=== PATIENT | male | born 1950 | race Caucasian/White ===

== ENCOUNTER 2024-05-22 06:28 | Inpatient (IN) | payer MEDICARE, OTHER, SELFPAY ==
[2024-05-22] VITALS (19 sets, daily range): BP systolic 98–155; BP diastolic 45–114; BMI 22.0; BMI 21.4
[2024-05-22 04:21] LABS: % Basophils 0.6 % (0-2); % Eosinophils 3.8 % (0-6); % Immature Granulocytes 0.4 % (0-0.5); % Lymphocytes 37.9 % (20.5-51.1); % Monocytes 10.1 % (1.7-9.3); % Neutrophils 47.2 % (42.2-75.2); Absolute Basophils 0.1 10^3/uL (0-0.2); Absolute Eosinophils 0.4 10^3/uL (0-0.7); Absolute Lymphocytes 3.9 10^3/uL (1.2-3.4); Absolute Neutrophils 4.9 10^3/uL (1.4-6.5); Hematocrit 40.8 % (39.0-52.0); Hemoglobin 13.8 g/dL (13.0-18.0); Mean Corp Hgb Conc. 33.8 g/dL (33.0-37.0); Mean Corpuscular Hgb 27.3 pg (27.0-31.0); Mean Corpuscular Volume 80.6 fL (80.0-94.0); Mean Platelet Volume 9.3 fL (7.4-10.4); Nucleated Red Blood Cells % 0 % (-); Platelet Count 317 10^3/uL (130-400); Red Blood Cell Count 5.06 10^6/uL (4.70-6.10); Red Cell Dist. Width 13.9 % (11.5-14.5); White Blood Cell Count 10.3 10^3/uL (4.8-10.8)
[2024-05-22 04:34] LABS: ALT (SGPT) 21 U/L (0-50); AST (SGOT) 34 U/L (17-59); Albumin 4.8 g/dl (3.5-5.0); Alkaline Phosphatase 97 U/L (38-126); Blood Urea Nitrogen 30 mg/dl (9-20); Carbon Dioxide 31 mmol/L (22-30); Chloride 99 mmol/L (98-107); Estimated Creatinine Clearance 63 ml/min; Glucose 292 mg/dl (70-99); Potassium 4.2 mmol/L (3.5-5.1); Sodium 142 mmol/L (135-145); Total Bilirubin 0.8 mg/dl (0.2-1.3); Total Protein 7.4 g/dl (6.3-8.2); eGFR > 60.00
--- NOTE | 2024-05-22 04:40 | ED.GENMED ---
History of Present Illness
<Natalie (Tunde JOCELIN Arellano - Last Filed: 05/22/24 05:06>
General
Chief Complaint: Chest Pain
Source: patient
Exam Limitations: none
Time Seen by Provider: 05/22/24 04:20
Nursing documentation reviewed up to this point in time: agreed with
History of Present Illness
History of Present Illness:
Pt is a 74yo male with PMHx of HTN/HLD and 'elevated sugar' (pt denies dx of diabetes) who presents to the ED with chest pain since 1999. 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
radiated across the entire chest, to the L arm, where it became dull at his elbow. The pain has been constant since, but ebbs and flows in severity. It is worse when laying supine, better with standing. He came home from work, ate his first meal of
the day, and took his blood pressure (180s/100s). He took a losartan (unsure mg) which lowered his BP to 160s systolic, and hydrocodone for the pain. Endorses diaphoresis at pain onset and lasting nausea, no vomiting. He denies numbness or tingling
in his digits, no pain with breathing, no dyspnea or orthopnea, no abdominal pain, no swelling. Denies DIAZ, fevers, chills.
Yesterday morning he worked out his arms, but does not recall pulling a muscle or having injury.
Yesterday (05/21) he states he only had one glass of water in the morning, then he worked all day in his shop which is set to 80 degrees, and then ate his first meal at night, after the onset of the pain. He normally only eats 1 meal a day.
He states that his primary once gave him a 6 month dose of losartan for HTN, but he self-elected to stop taking it 3-4 months ago.
Additionally he states he took Jardiance for 'high sugars' but hasn't taken that in months.
He has never seen a dethistler operator.
Past History
<JOCELIN Patel (Lenka) - Last Filed: 05/22/24 05:06>
Past History
ED Past Medical History: HTN, Hypercholesterolemia and Other ('high sugar, not diabetes')
ED Past Surgical History: None
Social History
Tobacco: Non-smoker
Alcohol: None
Drug: None
Personal:
Living: with family
Employment: Employed (Self-employed body artist)
Family History
Family History: Other (denies FHx of cardiac conditions)
Phy Exam
<JOCELIN Patel (Lenka) - Last Filed: 05/22/24 05:06>
General Physical Exam
General Presentation: mild distress (pt pacing around room)
General age: appears younger than age
General Skin: warm and dry
General Habitus: normal
General Mental: alert
General Hydration: appears well hydrated
Eye Exam
Eye Exam: PERRL and conjunctiva normal
Cardiovascular Exam
Cardiovascular Exam: regular rate/rhythm, no edema, no gallop, no murmur and normal peripheral pulses
Heart Sounds: normal
Pulmonary Exam
Pulmonary Exam: lungs clear, no respiratory distress, no rales, chest non tender (chest without increased tenderness when palpating ), no rhonchi, no wheezing and no cough
Gastrointestinal Exam
Gastrointestinal Exam: normal bowel sounds, non tender, soft and non distended
Neurological Exam
Neurological Exam: alert, oriented x3, speech normal and normal gait
Musculoskeletal Exam
Musculoskeletal Exam: full ROM
Skin Exam
Skin Exam: normal color and warm/dry
Scores
<Abhilash Jolly DO - Last Filed: 05/24/24 19:00>
Heart Score for Chest Pain Patients
STEMI patient?: Not applicable
Course
<Natalie Arellano (Lenka), JOCELIN - Last Filed: 05/22/24 05:06>
Orders/Labs/Results
Orders:
Orders
05/22/24 03:29
Electrocardiogram (*1) Urgent
Reason for Study: Other
Other Reason for Exam: Respiratory Distress
EKG- Treatment ONCE
CR Chest - 2 Views Urgent
Comment:
Reason For Exam: respiratory distress
05/22/24 03:44
CR Shoulder - Left Min 2 View* Urgent
Comment:
Reason For Exam: shoulder pain
05/22/24 04:07
Complete Blood Count/With Diff Urgent
Comprehensive Metabolic Panel Urgent
Troponin I Urgent
05/22/24 05:11
Aspirin 325 mg PO NOW STA
Nitroglycerin Sublingual [Nitrostat (Sublingual)] 0.4 mg SL [id number] PRN
05/22/24 05:20
Heparin 4,000 units IV NOW STA
05/22/24 05:[address] Non Medication Order As Directed
Physician Order: PTT 6 hours after initial start of Heparin infusion
Above order entered?: Yes
05/22/24 05:30
PTT Urgent
Comment: Obtain baseline before beginning heparin infusion if not already collected
05/22/24 05:32
Heparin 09654 Units/250 ml 25,000 units in 250 ml .ROUTE .STK-MED
05/22/24 Breakfast
NPO
Allow oral meds: Yes
Allow clear liquids: Sips of Clears
05/22/24 06:15
Heparin 47232 Units/250 ml 25,000 units in 250 ml IV PER PROTOCOL
Weight to be used for heparin protocol in kilograms (kg):: 75.6
Protocol:: Cardiac Tx/Acute Coronary
PTT Goal Range to be used:: PTT 73 to 111 seconds
Order type:: Initial
INITIAL Infusion Dose (UNITS/KG/hr) & then follow protocol:: 12 units/kg/hr
Infusion Dose in UNITS/hr & then follow protocol (UNITS/hr):: 900
INFUSION RATE in mL/hr & then follow protocol (mL/hr):: 9
PTT less than or equal to 64 seconds:: Increase rate by 200 units/hr (+ 2 mL/hr)
PTT 64.1 to 72.9 seconds:: Increase rate by 100 units/hr (+ 1 mL/hr)
PTT 73 to 111 seconds:: Target Range. No change in rate.
PTT 111.1 to 130.9 seconds:: Decrease rate by 100 units/hr (- 1 mL/hr)
PTT 131 to 199.9 seconds:: HOLD for 1 hr. Then decrease rate by 200 units/hr (- 2 mL/hr)
PTT greater than or equal to 200 seconds:: HOLD for 2 hrs & Notify Provider. Then decrease by 200 units/hr (-
2 mL/hr)
Lab follow-up:: Each change, PTT q6h until 2 consecutive are therapeutic. Then PTT
daily.
05/22/24 06:17
Admit/Transfer Patient As Directed
Co-Sign Provider:
Level of Care: Inpatient admission
Assign to:: IVU
Physician / Group: Manolo
Diagnosis: ACS
Reason for Hospitalization: ACS
Expected length of stay greater than two midnights?: Yes
ELOS- Estimated Length of Stay in days: 2
I certify the patient meets the requirements for IP care: Yes
PRN Pain Medication Management As Directed
May give lesser potent ordered pain med per pt: Yes
preference::
Protocol:: Medication orders for pain may be administered in a
manner that supports deferring to patient preference
when the pt is:
- Requesting an ordered lesser potent pain medication.
Least to most potent pain medications are defined
as: acetaminophen < NSAID < tramadol < opioids
(morphine, oxycodone, hydromorphone).
- Requesting a lesser dose of the same medication IF
ORDERED.
- Requesting a less intrusive route of administration
if both routes are prescribed by the provider (PO <
IV).
05/22/24 06:18
Code Status As Directed
Resuscitation Status: Full Code
05/22/24 07:53
0.9% Sodium Chloride 1000 ml [Nss] 1,000 ml IV 100 mls/hr
Acetaminophen [Tylenol] 650 mg PO Q4HPRN PRN
Dextrose 50%-Water [Dextrose 50% Syringe] 12.5 grams IV [id number] PRN
Glucagon [GlucaGen] 1 mg IM PRN PRN
Morphine Sulfate 2 mg IV Q4HPRN PRN
Nitroglycerin Sublingual [Nitrostat (Sublingual)] 0.4 mg SL [id number] PRN
Ondansetron Injectable [Zofran] 4 mg IV Q6HPRN PRN
05/22/24 07:53
CARDIOLOGY CONSULT Routine
Consulting Provider: Pramod Amos
Was physician already notified: Yes
Reason for consult: ACS
Heparin Protocol- PTT Orders As Directed
PTT per Heparin protocol: -Obtain CBC and baseline PTT - if not already collected.
-Obtain PTT 6 hours from start of infusion. Then, every 6 hours until 2 consecutive
PTT's are therapeutic. Then, PTT Daily.
-With each rate change, obtain PTT every 6 hours until 2 consecutive PTT's are
therapeutic. Then, PTT Daily.
Activity As Directed
Activity Level: Bedrest
Bedside Glucose Monitoring As Directed
Frequency: AC&HS
Additional Instructions:: Change to q6h if pt on TPN, tube feeding or not eating
Bladder Scan As Directed
Follow Bladder Retention/Intermittent Cath Algorithm?: Yes
PRN if no void in __ hours: 6
Frequency: Per Retention Algorithm
If Bladder Scan Result >: 400
then:: Straight cath
EKG with chest pain [ECG as needed] As Directed
ECG as needed for:: Chest Pain
I/O [Intake/ Output] As Directed
Frequency: Per unit guidelines
Notify MD As Directed
Notify physician if: PTT is greater than or equal to 200.
Straight Cath As Directed
Frequency: Per Retention Algorithm
Additional Instructions: straight cath as needed per acute urinary retention algorithm for 24 hrs
Additional Instructions: for bladder scan greater than 400 mL
Vital Signs As Directed
Frequency: Per unit guidelines
Oxygen Therapy [O2 Therapy] [RESP] Routine
Titrate/Wean O2 to maintain O2 sat greater than (%): 94
05/22/24 08:00
Pantoprazole [Protonix IV] 40 mg IV DAILY
05/22/24 08:10
Insulin Aspart Corrective Low [Novolog Flexpen-Low Resistance] See Protocol SC AC
05/22/24 09:13
Troponin I Q6H
05/22/24 12:27
PTT Q6
05/22/24 16:39
Troponin I Q6H
05/23/24 05:11
Basic Metabolic Panel IN AM
05/23/24 06:00
EKG [Electrocardiogram (*1)] IN AM
Reason for Study: Chest Pain
05/23/24 08:00
Aspirin Chewable [Low Strength Aspirin] 81 mg PO DAILY
Abnormal Lab Results
05/22/24
04:07
Absolute Lymphs (auto) 3.9 H 10^3/uL
(1.2-3.4)
Absolute Monos (auto) 1.0 H 10^3/uL
(0.1-0.6)
Monocytes % 10.1 H %
(1.7-9.3)
Carbon Dioxide 31 H mmol/L
(22-30)
BUN 30 H mg/dl
(9-20)
Glucose 292 H mg/dl
(70-99)
Troponin I 0.105 H* ng/ml
05/22/24 04:07
05/22/24 04:07
Vital Signs
Initial and Last Documented VS:
Initial Vital Signs
Temp Pulse Resp BP Pulse Ox
97.5 F 68 18 155/86 98
05/22/24 03:38 05/22/24 03:38 05/22/24 03:38 05/22/24 03:38 05/22/24 03:38
Last Documented Vital Signs
Temp Pulse Resp BP Pulse Ox
97.2 F 68 18 120/78 98
05/23/24 11:56 05/23/24 11:56 05/23/24 11:56 05/23/24 11:56 05/23/24 07:47
<Abhilash Jolly, - Last Filed: 05/24/24 19:00>
Orders/Labs/Results
Orders:
Orders
05/22/24 03:29
Electrocardiogram (*1) Urgent
Reason for Study: Other
Other Reason for Exam: Respiratory Distress
EKG- Treatment ONCE
CR Chest - 2 Views Urgent
Comment:
Reason For Exam: respiratory distress
05/22/24 03:44
CR Shoulder - Left Min 2 View* Urgent
Comment:
Reason For Exam: shoulder pain
05/22/24 04:07
Complete Blood Count/With Diff Urgent
Comprehensive Metabolic Panel Urgent
Troponin I Urgent
05/22/24 05:11
Aspirin 325 mg PO NOW STA
Nitroglycerin Sublingual [Nitrostat (Sublingual)] 0.4 mg SL [id number] PRN
05/22/24 05:20
Heparin 4,000 units IV NOW STA
05/22/24 05:[address] Non Medication Order As Directed
Physician Order: PTT 6 hours after initial start of Heparin infusion
Above order entered?: Yes
05/22/24 05:30
PTT Urgent
Comment: Obtain baseline before beginning heparin infusion if not already collected
05/22/24 05:32
Heparin 52477 Units/250 ml 25,000 units in 250 ml .ROUTE .STK-MED
05/22/24 Breakfast
NPO
Allow oral meds: Yes
Allow clear liquids: Sips of Clears
05/22/24 06:15
Heparin [id number] Units/250 ml 25,000 units in 250 ml IV PER PROTOCOL
Weight to be used for heparin protocol in kilograms (kg):: 75.6
Protocol:: Cardiac Tx/Acute Coronary
PTT Goal Range to be used:: PTT 73 to 111 seconds
Order type:: Initial
INITIAL Infusion Dose (UNITS/KG/hr) & then follow protocol:: 12 units/kg/hr
Infusion Dose in UNITS/hr & then follow protocol (UNITS/hr):: 900
INFUSION RATE in mL/hr & then follow protocol (mL/hr):: 9
PTT less than or equal to 64 seconds:: Increase rate by 200 units/hr (+ 2 mL/hr)
PTT 64.1 to 72.9 seconds:: Increase rate by 100 units/hr (+ 1 mL/hr)
PTT 73 to 111 seconds:: Target Range. No change in rate.
PTT 111.1 to 130.9 seconds:: Decrease rate by 100 units/hr (- 1 mL/hr)
PTT 131 to 199.9 seconds:: HOLD for 1 hr. Then decrease rate by 200 units/hr (- 2 mL/hr)
PTT greater than or equal to 200 seconds:: HOLD for 2 hrs & Notify Provider. Then decrease by 200 units/hr (-
2 mL/hr)
Lab follow-up:: Each change, PTT q6h until 2 consecutive are therapeutic. Then PTT
daily.
05/22/24 06:17
Admit/Transfer Patient As Directed
Co-Sign Provider:
Level of Care: Inpatient admission
Assign to:: IVU
Physician / Group: Manolo
Diagnosis: ACS
Reason for Hospitalization: ACS
Expected length of stay greater than two midnights?: Yes
ELOS- Estimated Length of Stay in days: 2
I certify the patient meets the requirements for IP care: Yes
PRN Pain Medication Management As Directed
May give lesser potent ordered pain med per pt: Yes
preference::
Protocol:: Medication orders for pain may be administered in a
manner that supports deferring to patient preference
when the pt is:
- Requesting an ordered lesser potent pain medication.
Least to most potent pain medications are defined
as: acetaminophen < NSAID < tramadol < opioids
(morphine, oxycodone, hydromorphone).
- Requesting a lesser dose of the same medication IF
ORDERED.
- Requesting a less intrusive route of administration
if both routes are prescribed by the provider (PO <
IV).
05/22/24 06:18
Code Status As Directed
Resuscitation Status: Full Code
05/22/24 07:53
0.9% Sodium Chloride 1000 ml [Nss] 1,000 ml IV 100 mls/hr
Acetaminophen [Tylenol] 650 mg PO Q4HPRN PRN
Dextrose 50%-Water [Dextrose 50% Syringe] 12.5 grams IV [id number] PRN
Glucagon [GlucaGen] 1 mg IM PRN PRN
Morphine Sulfate 2 mg IV Q4HPRN PRN
Nitroglycerin Sublingual [Nitrostat (Sublingual)] 0.4 mg SL [id number] PRN
Ondansetron Injectable [Zofran] 4 mg IV Q6HPRN PRN
05/22/24 07:53
CARDIOLOGY CONSULT Routine
Consulting Provider: Pramod Amos
Was physician already notified: Yes
Reason for consult: ACS
Heparin Protocol- PTT Orders As Directed
PTT per Heparin protocol: -Obtain CBC and baseline PTT - if not already collected.
-Obtain PTT 6 hours from start of infusion. Then, every 6 hours until 2 consecutive
PTT's are therapeutic. Then, PTT Daily.
-With each rate change, obtain PTT every 6 hours until 2 consecutive PTT's are
therapeutic. Then, PTT Daily.
Activity As Directed
Activity Level: Bedrest
Bedside Glucose Monitoring As Directed
Frequency: AC&HS
Additional Instructions:: Change to q6h if pt on TPN, tube feeding or not eating
Bladder Scan As Directed
Follow Bladder Retention/Intermittent Cath Algorithm?: Yes
PRN if no void in __ hours: 6
Frequency: Per Retention Algorithm
If Bladder Scan Result >: 400
then:: Straight cath
EKG with chest pain [ECG as needed] As Directed
ECG as needed for:: Chest Pain
I/O [Intake/ Output] As Directed
Frequency: Per unit guidelines
Notify MD As Directed
Notify physician if: PTT is greater than or equal to 200.
Straight Cath As Directed
Frequency: Per Retention Algorithm
Additional Instructions: straight cath as needed per acute urinary retention algorithm for 24 hrs
Additional Instructions: for bladder scan greater than 400 mL
Vital Signs As Directed
Frequency: Per unit guidelines
Oxygen Therapy [O2 Therapy] [RESP] Routine
Titrate/Wean O2 to maintain O2 sat greater than (%): 94
05/22/24 08:00
Pantoprazole [Protonix IV] 40 mg IV DAILY
05/22/24 08:10
Insulin Aspart Corrective Low [Novolog Flexpen-Low Resistance] See Protocol SC AC
05/22/24 09:13
Troponin I Q6H
05/22/24 12:27
PTT Q6
05/22/24 16:39
Troponin I Q6H
05/23/24 05:11
Basic Metabolic Panel IN AM
05/23/24 06:00
EKG [Electrocardiogram (*1)] IN AM
Reason for Study: Chest Pain
05/23/24 08:00
Aspirin Chewable [Low Strength Aspirin] 81 mg PO DAILY
Abnormal Lab Results
05/22/24
04:07
Absolute Lymphs (auto) 3.9 H 10^3/uL
(1.2-3.4)
Absolute Monos (auto) 1.0 H 10^3/uL
(0.1-0.6)
Monocytes % 10.1 H %
(1.7-9.3)
Carbon Dioxide 31 H mmol/L
(22-30)
BUN 30 H mg/dl
(9-20)
Glucose 292 H mg/dl
(70-99)
Troponin I 0.105 H* ng/ml
05/22/24 04:07
05/22/24 04:07
Vital Signs
Initial and Last Documented VS:
Initial Vital Signs
Temp Pulse Resp BP Pulse Ox
97.5 F 68 18 155/86 98
05/22/24 03:38 05/22/24 03:38 05/22/24 03:38 05/22/24 03:38 05/22/24 03:38
Last Documented Vital Signs
Temp Pulse Resp BP Pulse Ox
97.2 F 68 18 120/78 98
05/23/24 11:56 05/23/24 11:56 05/23/24 11:56 05/23/24 11:56 05/23/24 07:47
<JOCELIN Patel (Lenka) - Last Filed: 05/22/24 05:06>
MDM/Problems Addressed
Differential Diagnosis Includes:
DDx: [place] vs aortic dissection vs MSK pain
Pt with new sudden onset chest pain with radiation to L arm + diaphoresis and hypertension. 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
Will obtain CBC/CMP, troponin, EKG, CXR.
Chronic conditions affecting care: HTN
<Abhilash Jolly DO - Last Filed: 05/24/24 19:00>
*Critical Care Note
Total Time (30-74mins, 75-104mins- exclusive of procedures): Not Applicable
<JOCELIN Patel (Lenka) - Last Filed: 05/22/24 05:06>
Update Note
Update Note:
Initial troponin - 0.105
Repeat troponin -
<Abhilash Jolly DO - Last Filed: 05/24/24 19:00>
Update Note
Update Note:
Initial troponin - 0.105
Repeat troponin -
05/22/[address] Amos who reviewed EKG. He recommends heparin. Will admit to the hospital service to trend troponins.
ED Attending Note
<JOCELIN Patel (Lenka) - Last Filed: 05/22/24 05:06>
-
Portions of this chart may have been created with voice recognition software.� Occasional wrong word or��sound alike� substitutions may have occurred due to the inherent limitations of voice recognition software.
<Abhilash Jolly DO - Last Filed: 05/24/24 19:00>
ED Attending Note
Patient seen and examined by attending physician: Yes
I performed the substantive portion of visit, reviewed & personally made and approve the management plan that is documented in note by myself or YESICA.: Yes
ED Attending Note:
Is a 74-year-old male who presents with substernal intermittent chest pain radiating to his left shoulder. He states that this began around 8:30 PM as he was getting ready to start a tattoo. Patient was working out yesterday morning and thinks he
might have exacerbated a left shoulder injury that he sustained years ago. Patient does have some nausea and his chest pain is exacerbated when lying flat. He reports no shortness of breath. He denies any previous cardiac history. Family history
is negative. Patient denies fever, chills, or chest pain. Patient does have a 15-year tobacco history but quit many years ago. Patient was seen in conjunction with the PA student. I have reviewed and agree with the history and treatment plan
presented. On my independent physical exam, patient is awake, alert, and oriented x3 minimal acute distress. Heart is regular rate and rhythm. Lungs are clear to auscultation bilaterally without wheezes rales or rhonchi. Skin is warm and dry,
multiple tattoos. Moves all 4 extremities.
EKG shows sinus rhythm rate of 60 with normal intervals, normal axis. PVCs are present. No evidence of acute ischemia present. No old EKG available for comparison.
Discharge Plan
Departure
Patient Disposition: Admit
Date of Disposition: 05/22/24
Time of Disposition: 05:37
Admit to: Telemetry
Presentation/result/management discussed w/ accepting MD/DO: Hospitalist
Discharge Problem:
ACS (acute coronary syndrome)
Interventions
Interventions:
*Risk Screen - Suicide Last Done: 05/22/24 03:38
*General Assessment Last Done: 05/22/24 03:38
*Neglect/Abuse Screening Last Done: 05/22/24 03:38
ED- Fall Risk Assessment Last Done: 05/22/24 08:02
*ED COVID-19 Vaccine History Last Done: 05/22/24 03:38
*Nursing Disposition Last Done: 05/22/24 08:02
ED- Cardiac Assessment Last Done: 05/22/24 04:13
[2024-05-22 05:00] LABS: Troponin I 0.105 ng/ml
[2024-05-22] MEDS: NITROSTAT (SUBLINGUAL) 0.4 MG SL (05:22)
[2024-05-22] MEDS: ASPIRIN 325 MG PO (05:22)
[2024-05-22] MEDS: HEPARIN 4000 UNITS IV (05:35)
[2024-05-22] MEDS: HEPARIN 25000 UNITS/250 ML IV (06:18)
--- NOTE | 2024-05-22 06:21 | HPS.HSE ---
Family Physician
-
Family Physician: Frank Reyes Jr.
Chief Complaint
-
Chest Pain
History of Present Illness
Patient is a 74y M with PMH significant for hypertension and DM-II who presents to ED complaining of chest pain. Patient states that he was at work this afternoon when he began to feel nauseated and then developed substernal chest pain. Patient
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 He noted that he had a low level of persistent pain throughout the evening. His pain seemed worse after eating / drinking. He went to bed this evening and his pain again seemed
worse. He was restless at home and noted pain was worse when lying flat. He had pain across the entire chest and radiating into his neck and his LUE (to the elbow). He had associated nausea and diaphoresis. No pain in the back. No dyspnea.
Patient denies any prior history of similar symptoms.
He eventually presented to the ED for further evaluation with persistent / worsening symptoms.
In the ED, patient continued to have pain which resolved following SL NTG.
Patient states that he is 'supposed to' take Jardiance for DM and losartan for HTN. He takes neither of these on a regular basis.
He did take doses of each this evening given his symptoms.
Medical History
Past Medical History
Past Medical History: Reports Other
Additional Past Medical History:
Hypertension
DM-II
Past Surgical History: Reports Other
Additional Past Surgical History:
Varicocele
Bunionectomy
Septoplasty
Social History
Tobacco: Former Smoker (Quit smoking 30-40 years ago. Approx 10 pack years total use.)
Alcohol: None
Drug: Other (Prior h/o drug use. None in many years. No h/o IVDA.)
Family History
Family History: Other (Father: Lung Cancer Mother: CAD)
Allergies / Home Medications
Allergies reflects when Allergies were last updated in [facility].
Home Medications with original date entered in [facility]
Allergy/Medication List:
Allergies
Allergy/AdvReac Type Severity Reaction Status Date / Time
No Known Allergies Allergy Verified 05/22/24 03:37
Home Medications
No Meds [No Current Medications] 05/22/24
Patient is prescribed Jardiance and losartan; however, he does not take these.
Review of Systems
-
History Source: Patient
A 12 point ROS was completed and negative except as noted: Yes
Constitutional: Reports Fatigue; Denies Fever or Chills
EENT: Denies Sore Throat
Respiratory: Denies Cough or Trouble Breathing
Cardiac: Reports Chest Pain and Diaphoresis; Denies Palpitations or Syncope
Abdomen/GI: Reports Nausea; Denies Abdominal Pain, Vomiting, Diarrhea, Constipated, Bloody Stools or Black Stools
: Denies Dysuria, Frequency or Flank Pain
Musculoskeletal: Reports Joint Pain (L shoulder / arm pain.); Denies Edema
Neurological: Denies Dizzy or Headache
Psych: Denies Depression or Anxiety
Physical Exam
Vital Signs
Vital Signs
Temp Pulse Resp BP Pulse Ox
97.5 F 75 16 98/45 99
05/22/24 03:38 05/22/24 06:00 05/22/24 06:00 05/22/24 05:58 05/22/24 06:00
Physical Exam
General: Other (74y M in no acute distress.)
HEENT: Moist mucous membranes and PERRLA
Respiratory: Clear; No Wheezes, Rales or Rhonchi
Cardiac: S1/S2 and Regular Rhythm; No Murmur
GI: Soft, Non Tender, Non Distended and Normal Bowel Sounds
Musculoskeletal: No Clubbing, No Cyanosis and No Edema
Neuro: AO x 3
Laboratory Results
-
05/22/24 04:07
05/22/24 04:07
Laboratory Results
APTT 29.0 Sec (23.4-35.0) 05/22/24 05:30
Total Bilirubin 0.8 mg/dl (0.2-1.3) 05/22/24 04:07
AST 34 U/L (17-59) 05/22/24 04:07
ALT 21 U/L (0-50) 05/22/24 04:07
Alkaline Phosphatase 97 U/L (38-126) 05/22/24 04:07
Troponin I 0.105 ng/ml H* 05/22/24 04:07
Impression/Plan
-
A/P: Patient is a 74y M with PMH significant for HTN and DM-II who presents to ED complaining of chest pain.
ACS / Chest Pain
- Admit for further evaluation and treatment.
- Patient describes substernal chest pain with radiation into the neck and LUE, diaphoresis and nausea.
- Troponin initially 0.105. Follow to peak.
- Pain resolved in the ED s/p SL NTG.
- Follow for any recurrent symptoms and treat as needed.
- IV heparin infusion for now.
- Cardiology consulted. ? ischemic evaluation / cath later today.
- ASA daily. Begin statin.
- Treat underlying risk factors as noted below.
DM-II, Uncontrolled
- Patient non-compliant with prescribed med / Jardiance.
- States that he reduced his A1C from 10 to 5% with lifestyle change - but last check was some time ago.
- Follow glucose and cover with SSI as needed.
- Update A1C.
- Will likely benefit from dedicated med regimen at discharge.
- Continue healthy diet and exercise.
Benign Hypertension
- BP initially elevated (due to pain) and then borderline low (due to NTG).
- Continue to hold losartan for now.
- Follow BP and adjust med regimen as needed for adequate control.
DVT Prophylaxis: On IV Heparin
Code Status: Full
--- NOTE | 2024-05-22 08:46 | CON.CAR ---
Addendum entered and electronically signed by Pramod Amos MD 05/22/24 09:39:
74 yo male with PMH of HTN, hyperlipidemia, DM (but not on meds), former tobacco is admitted with chest pain, nausea, diaphoresis. Waxing and waning since last evening so presented to ED. Responded to [facility]. Now chest pain free. Exam with RRR, no
murmurs, no edema. EKG: no acute ischemic changes. TnI 0.1.
ACS/NSTEMI: ASA 324mg, heparin drip. Cath and echo today. We discussed importance of med compliance if he needs a stent.
Original Note:
Consultation
Consultation Request
Date/Time Consultation Requested: 05/22/24 7:55a
Date/Time Consultation Performed: 05/22/24 8:30a
Requesting Provider: Dr. French
Performing Provider: BEBA Buenrostro for Dr. Amos
Reason for Consultation: chest pain
Medical History
-
Chief Complaint: chest pain/left shoulder pain
History of Present Illness:
Mr. 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 He went home and ate
dinner then sat down and developed midsternal chest pain with radiation to left shoulder and left arm, around 10pm. Pain was intermittent, mild to moderate, until 4am when he went to the ER. He c/o diaphoresis and nausea with chest pain in the ER.
Symptoms resolved in the ER after SL NTG. He is admitted to hospitalist service and we are consulted for chest pain/NSTEMI as initial troponin was 0.105.
Past Medical History
Past Medical History: Other (untreated DM, HTN, HLD, noncompliance)
Social History
Tobacco: Former Smoker (quit 30 years ago, 1ppd)
Alcohol: Former (quit 30 years ago)
Personal: Single
Living: Alone
Employment: Employed (studio artist)
Family History
Family History: Other (mother age 76 unknown heart history)
Allergies / Home Medications
Allergy/AdvReac Type Severity Reaction Status Date / Time
No Known Allergies Allergy Verified 05/22/24 03:37
�Medication �Instructions �Recorded �Confirmed �Type
No Meds [No Current Medications] 05/22/24 05/22/24 History
Review of Systems
-
History Source: Patient
All other systems: Negative unless noted
Physical Exam
Vital Signs
Temp Pulse Resp BP Pulse Ox
97.5 F 64 13 113/67 99
05/22/24 03:38 05/22/24 06:30 05/22/24 06:30 05/22/24 06:24 05/22/24 06:30
Lab Results
05/22/24 04:07
05/22/24 04:07
Troponin I 0.105 ng/ml H* 05/22/24 04:07
Physical Exam
General: Well Developed, Well Nourished and No Apparent Distress
HEENT: Normocephalic, Anicteric and Moist Mucous Membranes
Respiratory: Clear and Non Labored Respirations
Cardiac: S1/S2 and Regular Rhythm
Breast: Deferred by me
GI: Soft, Non Tender, Non Distended and Normal Bowel Sounds
Rectal: Deferred by Provider
Genito-urinary: Costovertebral Angle Tend
Musculoskeletal: No Cyanosis and No Edema
Skin: Warm and Dry
Neuro: AO x 3
Hematologic/Lymphatic: No Lymphadenopathy
Psych: Calm
Impression / Plan
-
NSTEMI - acute chest pain, diaphoresis, nausea, left shoulder pain last night.
- initial troponin 0.103, trend to peak.
- EKG with NSR, PVC, no ischemia.
- currently pain free.
- check echo.
- IV Heparin, ASA.
- check lipid profile.
- plan for [facility] today.
HTN - untreated.
- elevated BP at home 180/100 last night, took Losartan.
- monitor BP.
HLD - check lipid profile.
- if he had CAD and requires PCI then goal LDL is < 55.
- started on Lipitor 40mg daily.
DM - untreated.
- admits HgbA1c was 10 in 2016 and he reduced to 5 with diet/exercise.
- recently PCP prescribed him Jardiance which he took for 1 month and stopped, then couldn't afford it.
- check hgba1c, SSI per hospitalist.
Data Reviewed
-
EKG: Tracing Personally Visualized and interpreted (SR with PVC 60 bpm)
Radiology: Image Personally Visualized and interpreted (nad)
Labs: Labs Reviewed by me
Old Records: Reviewed
[2024-05-22 09:56] LABS: HDL Cholesterol 83 mg/dl; LDL Cholesterol, Calculated 136 mg/dl; Total Cholesterol 230 mg/dl (50-199); Triglyceride 57 mg/dl (10-149); Very Low Density Lipoprotein 11 mg/dl (0-30)
[2024-05-22 10:09] LABS: Glycohemoglobin (HgbA1c) 9.4 % (4.0-5.6)
[2024-05-22] MEDS: NSS 1000 IV ×2 (11:14→16:00)
[2024-05-22] MEDS: PROTONIX IV 40 MG IV (11:15)
[2024-05-22] MEDS: NSS (PRESERVATIVE FREE) 10 ML IV (11:19)
[2024-05-22] MEDS: NOVOLOG FLEXPEN-LOW RESISTANCE SC (11:20)
[2024-05-22 11:50] LABS: Glucose - Point of Care 241 mg/dl (70-99)
[2024-05-22] MEDS: NOVOLOG FLEXPEN-LOW RESISTANCE 2 UNITS SC (12:18)
--- NOTE | 2024-05-22 12:26 | CM ---
Chart reviewed. Patient is independent of ADLS, lives alone in a 1 STH, 0 KAREN, 0 DME. Plan is for the patient to return home. CM to follow
[2024-05-22 13:32] LABS: APTT 46.6 Sec (23.4-35.0)
[2024-05-22 14:57] LABS: ACT-LR - POC 313 Seconds (116-155)
[2024-05-22 15:27] LABS: ACT-LR - POC 240 Seconds (116-155)
--- NOTE | 2024-05-22 16:09 | CM ---
Pricing on Effient under the patient's [employer] Plan ID# [id number] is nonformulary and need PA called into [phone], . Preferred medication is Prasugrel 10mg daily is $21.70 for a 30 day supply
[2024-05-22 16:35] LABS: Glucose - Point of Care 163 mg/dl (70-99)
[2024-05-22] MEDS: NOVOLOG FLEXPEN-LOW RESISTANCE 1 UNITS SC (17:01)
[2024-05-22] MEDS: LIPITOR 40 MG PO (17:02)
[2024-05-22] MEDS: LOPRESSOR PO (20:18)
[2024-05-22 21:54] LABS: Glucose - Point of Care 226 mg/dl (70-99)
--- NOTE | 2024-05-23 00:51 | PTCARENOTE ---
Pt received start of shift, HR SB/SR. R radial band off ~2024. R radial dressing CDI, soft, no hematoma. Pt and extensively educated on purpose of new medications, medication adherence, CAD/NC, and diabetes. Pt needs reinforcement especially on
medication adherence and diabetes education. Pt would benefit greatly from family living educator consult - pt states they would love to take part in a class. Pt states they stopped a previous BP med on own due to PSA levels increasing - Pt states they
'read online' that BP meds can cause prostate CA. Packet about metoprolol printed and given to pt. Pt denies any CP, SOB, or lightheadedness/dizziness. Informed to notify RN if any changes, call randolph within reach.
[2024-05-23 04:59] VITALS: BP 111/92
[2024-05-23 05:00] VITALS: BP 124/77
[2024-05-23 05:17] VITALS: BMI 21.2
[2024-05-23 05:51] LABS: Blood Urea Nitrogen 24 mg/dl (9-20); Calcium 9.4 mg/dl (8.4-10.2); Carbon Dioxide 31 mmol/L (22-30); Chloride 103 mmol/L (98-107); Estimated Creatinine Clearance 74 ml/min; Glucose 190 mg/dl (70-99); Potassium 4.1 mmol/L (3.5-5.1); Sodium 141 mmol/L (135-145); eGFR > 60.00
--- NOTE | 2024-05-23 08:14 | ITS.CL.ANGIO ---
Sql Tech - Angioplasty
Angioplasty
Procedure Report:
CARDIAC CATHETERIZATION REPORT
Date of Procedure: 05/22/2024
Referring: Dr. Kevin Amos
Indication: NSTEMI
PROCEDURE:
1. Coronary angiography
2. IVUS of the LAD
2. PCI to the mid-LAD with drug-eluting stent
ACCESS:
6 Palestinian right radial artery (patient had radial loop requiring glide wire to cross and mother-daughter technique for advancement of guide, recommend left radial or femoral approach for future catheterization)
CATHETERS:
6 Palestinian JR 4 diagnostic
6 Palestinian JL 3.5 diagnostic
6 [place] XB 3.5 guide catheter (advanced with mother-daughter technique using long 5F JR4 diagnostic catheter)
HEMODYNAMIC DATA (mmHg)
AO 124/62 (mean 85)
CORONARY ANGIOGRAPHY
Dominance: left
LM: large vessel without disease
LAD: large vessel that gives rise to a moderate caliber D1, small D2, and wraps around the apex. There is a sub-total occlusion in the mid-LAD just after D2 with TIMI2 flow to the apex. D1 has a long segment of moderate disease back to its ostium.
D1 is diffusely diseased and <2.0 mm.
LCx: large dominant vessel giving rise to a large OM1, very large OM2, and large LPL branch. There is a 50% tubular stenosis in the proximal aspect of OM2.
RCA: non-dominant without disease
IVUS-guided and optimized PCI to LAD with NELSON
The left main was engaged with a XB3.5 guide catheter and heparin was given to achieve ACT>250. A Runthrough coronary wire was used to cross the LAD stenosis and a second protection wire was placed in the D2. Initial lesion preparation was performed
with a 2.5x12 mm balloon with full expansion and improvement in distal flow. IVUS was performed demonstrating moderate non-concentric calcification, a distal reference diameter of 3.0 mm and a proximal reference diameter of 4.25 mm. A 3.0x30 mm [place] NELSON was selected and deployed at [address]. Angiography demonstrated an excellent result with an area of mild under-expansion just distal to D2 and normal flow in the D2. The D2 protection wire was pulled back and rewired through stent struts.
POT was performed in the vessel proximal to D2 with a 4.0x8 mm NC balloon taken to high pressure. Post-dilation of the remainder of the stent (sparing the distal edge) was performed with a 3.0x12 mm NC to high pressure. IVUS was repeated and
demonstrated excellent stent apposition and expansion without dissection save a small area of under-expansion and under-sizing at the lesion site just distal to D2. This was further treated with a 3.5x12 mm NC taken to high pressure. After
confirming good flow in the D2, the wires were withdrawn, and final angiography demonstrated and excellent result without complication. The guide was removed and a TR band placed. The patient was given 600 mg Plavix and taken to the cath recovery
unit in stable condition.
Closure Device: TR band
RADIATION
Fluoroscopy time 26.6 minutes
Dose 1264.12 mGy
DAP 89.4768 Gycm2
CONCLUSIONS
1. Obstructive coronary artery disease in a left dominant system, with culprit sub-total occlusion of the mid-LAD.
2. Successful IVUS-guide and optimized PCI of the mid-LAD with placement of a 3.0x30 mm [place] NELSON post-dilated proximally to 4.0 mm
RECOMMENDATIONS:
1. Expectant management after right radial catheterization.
2. Continue DAPT with ASA/Plavix for at least 1 year. ASA for life.
3. Aggressive secondary management of CAD with high-intensity statin. Aggressive management of diabetes.
4. Post-PA GDMT with beta-zhao and ACEi. Ideally, should be started on MRA as well given DM and EF 40-45 but will defer for now given concern regarding pill burden.
5. Outpatient post-PCI follow up.
Copy to: Dr. Frank Reyes Jr. (PCP)
Signed: Stan Iniguez MD, PhD
[2024-05-23 08:26] LABS: Glucose - Point of Care 181 mg/dl (70-99)
[2024-05-23] MEDS: NOVOLOG FLEXPEN-LOW RESISTANCE 1 UNITS SC (09:03)
[2024-05-23] MEDS: NSS (PRESERVATIVE FREE) 10 ML IV (09:04)
[2024-05-23] MEDS: PROTONIX IV 40 MG IV (09:04)
[2024-05-23] MEDS: PLAVIX 75 MG PO (09:05)
[2024-05-23] MEDS: LOW STRENGTH ASPIRIN 81 MG PO (09:05)
[2024-05-23] MEDS: LOPRESSOR 12.5 MG PO (09:05)
--- NOTE | 2024-05-23 09:36 | W.PN.HOSP.TC ---
Today's Communication/Plan
-
d/c home
Assessment / Plan
Assessment / Plan
[facility] 05.22
1. Obstructive coronary artery disease in a left dominant system, with culprit sub-total occlusion of the mid-LAD.
2. Successful IVUS-guide and optimized PCI of the mid-LAD with placement of a 3.0x30 mm [place] NELSON post-dilated proximally to 4.0 mm

Patient is a 74y M with PMH significant for HTN and DM-II who presents to ED complaining of chest pain.
NSTEMI
-EKG /Trop max Precath of 5
-Underwent mid LAD NELSON placement on 05/22
-Cardio cleared today for discharge on DAPT/PETE/Statin thearpy
-Already taking Jardiance 25mg/d with dx of DM2
-Pt to f/u in office for further f/u, have D1/D2 branchers has diffuse atherosclerotic disease which may need to be addressed if have any further anginal symptoms correlating to area.
DM-II, Uncontrolled
-Hbg a1c of 9.4
-Has been diagnosed for few years and was able to manage with lifestyle changes
-Adding metformin/Glipizide to regimen
-Educated on carb controlled diet/weight loss and f/u with PCP periodically for further need of Diabetes care.
Benign Hypertension
-add on lisinopril small dose per cardio recommendation
DVT Prophylaxis: lovenox
Code Status: Full
More than 30 minutes spent in discharge including
Final examination of the patient
Summarizing hospital stay
Instructions for continuing care to all relevant caregivers
Preparation of discharge records, prescriptions, and referral forms
Total time spent (in minutes): 45 mins
Anticipated Discharge: Today
Subjective/Interval History
-
Date of Service: May 23, 2024
resting comfortably in bed
denies of having any issues overnight
Objective Data
-
Labs:
Laboratory Results
05/23/24
05:11
Sodium 141
Potassium 4.1
Chloride 103
Carbon Dioxide 31 H
BUN 24 H
Creatinine 0.9
Glucose 190 H
Calcium 9.4
Vital Signs:
Vital Signs
Temp Pulse Resp BP Pulse Ox
98.3 F 59 18 124/77 98
05/23/24 07:47 05/23/24 05:45 05/23/24 07:47 05/23/24 05:00 05/23/24 07:47
I&O
05/22/24 05/23/24 05/24/24
06:59 06:59 06:59
Intake Total 240 / 240
Balance 240 / 240
Review of Systems
-
Respiratory: Reports No Symptoms
Cardiac: Reports No Symptoms
Abdomen/GI: Reports No Symptoms
Physical Exam
-
General: No Apparent Distress and Comfortable
HEENT: Negative Oxygen
Respiratory: Clear to Auscultation
Cardiac: Regular Rhythm and S1/S2; Negative Murmur or Rub
GI: Soft, Nontender, Nondistended and Normal Bowel Sounds
Musculoskeletal: No Edema
Neuro: Awake, Alert, Oriented, No Motor Deficits and Nonfocal/Grossly Intact
Psych: Calm
--- NOTE | 2024-05-23 09:39 | W.PN.CD ---
Today's Communication / Plan
-
-Obtain troponin to get the peak troponin levels.
-Statins and diabetes control as per primary team.
-Will repeat echo in 2 to 3 months.
-Regular outpatient follow-up especially to emphasize drug compliance
Impression / Plan
-
NSTEMI -
- s/p [facility] 05/22/2024 subtotal occlusion of the mid LAD
- successful IVUS-guide and optimized PCI of the mid-LAD.
-Residual disease of the D1 and D2 noted.
-DAPT with aspirin and Plavix for 1 year
-Importance of compliance with medication was again emphasized. Patient understands and agree to stay on aspirin and Plavix without disruption.
-Echo 05/22/2024: LVEF 40% with mid to apical septal and apical hypokinesis. No valvular heart disease.
-Last troponin this morning is 7.6 still rising. Will obtain another troponin and if has already peaked, will consider discharging home today
HTN - untreated.
- elevated BP at home 180/100 last night, took Losartan.
- monitor BP.
HLD - check lipid profile.
- if he had CAD and requires PCI then goal LDL is < 55.
- Patient acknowledged that he takes more than 6 eggs with egg yolk every day. Low-cholesterol diet emphasized.
- started on Lipitor 40mg daily.
- Regular exercise with at least 150 minutes/week.
DM - untreated.
- admits HgbA1c was 10 in 2016 and he reduced to 5 with diet/exercise.
- recently PCP prescribed him Jardiance which he took for 1 month and stopped, then couldn't afford it.
- Hgba1c is 9.4 -poorly controlled, SSI per hospitalist.
- Further treatment as per internal medicine.
Physical Exam
Vital Signs/Labs
Vital Signs
Temp Pulse Resp BP Pulse Ox
98.3 F 59 18 124/77 98
05/23/24 07:47 05/23/24 05:45 05/23/24 07:47 05/23/24 05:00 05/23/24 07:47
05/22/24 05/23/24 05/24/24
06:59 06:59 06:59
Actual Weight 75.6 kg 73 kg
05/22/24 04:07
05/23/24 05:11
APTT 46.6 Sec (23.4-35.0) H 05/22/24 12:27
Triglycerides 57 mg/dl (10-149) 05/22/24 09:13
LDL Cholesterol, Calc 136 mg/dl 05/22/24 09:13
VLDL Cholesterol, Calc 11 mg/dl (0-30) 05/22/24 09:13
HDL Cholesterol 83 mg/dl 05/22/24 09:13
LAB Results
05/22/24 05/22/24 05/22/24
04:07 09:13 16:39
Troponin I 0.105 H* 1.290 H* D 5.010 H* D
05/23/24
05:11
Troponin I 7.650 H*
Physical Exam
Constitutional: No acute distress and Comfortable
EENT: Anicteric and Moist mucous membranes
Cardiovascular: Rhythm & rate is regular, Pedal edema is absent and JVD pressure is normal
Respiratory: Respiratory effort normal, Lungs clear to auscul. and Wheeze Absent
GI: Soft, Distention absent, Non tender and Normal bowel sounds
Neuro/Psych: Alert, Oriented and AO x 3
Other: Cath Site
Data Reviewed
-
Date of Service: May 23, 2024
Medical Decision Making: Reviewed Test Results, Independent Historian Assessment, Test Interpretation and Review of Case with other Provider
EKG: Tracing Personally Visualized and interpreted
Echo: Report Reviewed by me
X-Ray/CT/US/MRI/NUC/PET: Image Personally Visualized and interpreted
Medical Tests (PFT, Pathology etc): Image Personally Visualized and interpreted
Labs: Labs Reviewed by me
Old Records: Reviewed
[2024-05-23 11:56] VITALS: BP 120/78
--- NOTE | 2024-05-23 16:29 | W.DCSUMMARY ---
Discharge Summary
Discharge Data
Date of Admission: 05/22/24
Date of Discharge: 05/23/24
-
Pending Results: No
Hospital Course
Discharging Physician : Dr Nasim Muro
Disposition : Home
Primary care physician : Dr Frank Villa
Principal Discharge diagnosis :
Non ST segment elevation myocardial infarction
Ischemic cardiomyopathy
Chronic Discharge diagnosis :
Essential hypertension
Uncontrolled type 2 diabetes
Hyperlipidemia
Hospital Course :
Patient is a 74-year-old male with no mentioned past medical history came to ER with new onset of chest pain with associated nausea. Symptoms persisted and patient presented to ER for further evaluation. Pain was radiating to neck and left upper
extremity. Patient denied of having any previous coronary artery disease. Initial troponin show minimal elevation with suspicion of new coronary syndrome. Patient was started on IV heparin drip and loaded with aspirin. Cardiology was consulted
and took patient to [facility]. Patient was found to have mid LAD stenosis for which patient got NELSON placed. Patient also had some significant disease of D1 and D2 branches. Post [facility] patient was recommended to be maintained on dual
antiplatelet therapy for 1 year. Echocardiogram was showing low EF of 40%. For risk factor modification patient was started on Lipitor. Patient was also uncontrolled diabetic with hemoglobin A1c of 9.4. Patient was discharged on regimen of oral
antidiabetic medication including Jardiance. Patient instructed to follow-up with primary care physician for further adjustment of medication. Patient will follow-up with cardiology office as well.
Important imaging findings :
TTE
Mild/moderately reduced left ventricular systolic function. Left ventricular ejection fraction is 40-45%. Hypokinesis of the mid to apical septal segments and apex.
No significant valve disease.
Procedure findings :
[facility] 05/22
1. Obstructive coronary artery disease in a left dominant system, with culprit sub-total occlusion of the mid-LAD.
2. Successful IVUS-guide and optimized PCI of the mid-LAD with placement of a 3.0x30 mm [place] NELSON post-dilated proximally to 4.0 mm
Discharge Plan
-
Patient Disposition: Home (Routine Discharge)
Discharge Diagnosis/Procedures: NSTEMI, Angioplasty with stent to LAD
Condition: Fair
Diet: Low Cholesterol and Diabetic, Carb Controlled
Activity: As tolerated
Driving Restrictions: No driving for 24 hours
Bathing Restrictions: OK to Shower
Other Services: Cardiac Rehab
Stand Alone Forms: DC Instructions- Cath/EP Lab
Referrals:
Jia Quintanilla CRNP [Specified Professional Personl] - 06/17/24 10:40 am
Frank Villa Jr., DO [Family Provider] - in one week
Prescriptions:
New
atorvastatin 40 mg Tablet
40 mg PO QPM Qty: 30 2RF
clopidogrel 75 mg Tablet
75 mg PO DAILY Qty: 30 2RF
aspirin 81 mg Tablet,Chewable
81 mg PO DAILY Qty: 30 2RF
metoprolol tartrate 25 mg Tablet
12.5 mg PO BID Qty: 60 2RF
metformin 500 mg tablet
500 mg PO BID Qty: 60 2RF
glipizide 2.5 mg tablet
2.5 mg PO BID Qty: 60 2RF
lisinopril 2.5 mg Tablet
2.5 mg PO DAILY Qty: 30 2RF
(DME) blood-glucose meter [ReliOn All-In-One Meter] Kit
See Rx Instructions .Route Qty: 1 0RF
Rx Instructions:
Check Glucose before meal and night time
Jardiance 25 mg tablet
25 mg PO DAILY Qty: 30 0RF
Discontinued
Aspir-81
Discharge Orders:
Discharge Patient (As Directed); Ordered 05/23/24
Ordered By: Nasim Muro
Care Plan Goals
Care Plan Goals:
Problem: Readiness for enhanced knowledge related to diagnosis and treatment plan
Goal: Understand your diagnosis and treatment plan needs, including medications if applicable.
Instructions: Know your diagnosis, underlying causes and treatment plan options, including medications if applicable. Consult with your health care team to learn about your diagnosis and treatment plan, including medications if applicable.
Discharge Date and Time
Discharge Date/Time: 05/23/24 13:16
Print Language: TURKISH
== END 2024-05-23 13:16 | disposition home or self-care (01) | DRG 322 ==
LOC: IVU 06:28
PROVIDERS: Emergency Medicine; Nurse Practitioner; Nurse Practitioner Adult Health; Student in an Organized Health Care Education/Training Program; ADMITTING PHYSICIAN Hospitalist; ATTENDING PHYSICIAN Hospitalist; CONSULT PHYSICIAN Internal Medicine; EMERGENCY PHYSICIAN Student in an Organized Health Care Education/Training Program; FAMILY PHYSICIAN Family Medicine
PROC: 4A023N7 Measurement of Cardiac Sampling and Pressure, Left Heart, Percutaneous Approach (ICD-10-PCS; 2024-05-23)
PROC: B240ZZ3 Ultrasonography of Single Coronary Artery, Intravascular (ICD-10-PCS; 2024-05-23)
PROC: B2111ZZ Fluoroscopy of Multiple Coronary Arteries using Low Osmolar Contrast (ICD-10-PCS; 2024-05-23)
PROC: 027034Z Dilation of Coronary Artery, One Artery with Drug-eluting Intraluminal Device, Percutaneous Approach (ICD-10-PCS; 2024-05-23)
DX: I21.4 Non-ST elevation (NSTEMI) myocardial infarction (principal); I11.9 Hypertensive heart disease without heart failure; E78.00 Pure hypercholesterolemia, unspecified; E11.65 Type 2 diabetes mellitus with hyperglycemia; I25.10 Atherosclerotic heart disease of native coronary artery without angina pectoris; R06.03 Acute respiratory distress; I25.5 Ischemic cardiomyopathy; Z87.891 Personal history of nicotine dependence; Z91.199 Patient's noncompliance with other medical treatment and regimen due to unspecified reason; Z79.82 Long term (current) use of aspirin
CPT/HCPCS: 71046; 73030; 80048; 80053; 80061; 82962; 83036; 84484; 85025; 85347; 85730; 92978; 93005; 93306; 93454; 96365; 96366; 99285; C1725; C1753; C1769; C1874; C1887; C1894; C9600; Q9967

== ENCOUNTER 2024-06-29 10:03 | Outpatient (RCR) | payer MEDICARE, OTHER, SELFPAY ==
[2024-06-16 14:03] LABS: Glucose - Point of Care 105 mg/dl (70-99)
[2024-06-16 15:02] LABS: Glucose - Point of Care 195 mg/dl (70-99)
[2024-06-22 09:28] LABS: Glucose - Point of Care 163 mg/dl (70-99)
[2024-06-22 10:22] LABS: Glucose - Point of Care 126 mg/dl (70-99)
[2024-06-24 09:10] LABS: Glucose - Point of Care 165 mg/dl (70-99)
[2024-06-24 10:21] LABS: Glucose - Point of Care 137 mg/dl (70-99)
[2024-06-29 09:24] LABS: Glucose - Point of Care 140 mg/dl (70-99)
[2024-06-29 10:25] LABS: Glucose - Point of Care 94 mg/dl (70-99)
== END 2024-06-29 23:59 | disposition home or self-care (01) ==
LOC: CRHB 10:03
PROVIDERS: ATTENDING PHYSICIAN Internal Medicine
DX: I25.10 Atherosclerotic heart disease of native coronary artery without angina pectoris (principal); Z95.5 Presence of coronary angioplasty implant and graft; I25.2 Old myocardial infarction
CPT/HCPCS: 82962; G0422; G0423

== ENCOUNTER 2024-07-29 10:34 | Outpatient (RCR) | payer MEDICARE, OTHER, SELFPAY ==
[2024-07-01 09:15] LABS: Glucose - Point of Care 196 mg/dl (70-99)
[2024-07-01 10:19] LABS: Glucose - Point of Care 118 mg/dl (70-99)
[2024-07-06 09:29] LABS: Glucose - Point of Care 180 mg/dl (70-99)
[2024-07-08 09:16] LABS: Glucose - Point of Care 182 mg/dl (70-99)
[2024-07-08 10:13] LABS: Glucose - Point of Care 136 mg/dl (70-99)
== END 2024-07-29 23:59 | disposition home or self-care (01) ==
LOC: CRHB 10:34
PROVIDERS: ATTENDING PHYSICIAN Internal Medicine
DX: I25.10 Atherosclerotic heart disease of native coronary artery without angina pectoris (principal); Z95.5 Presence of coronary angioplasty implant and graft; I25.2 Old myocardial infarction
CPT/HCPCS: 82962; G0422; G0423

== ENCOUNTER → 2024-08-25 10:05 | Outpatient (REF) | payer MEDICARE, OTHER, SELFPAY | LOC: HWRCS 10:05 | PROVIDERS: ATTENDING PHYSICIAN Nurse Practitioner; FAMILY PHYSICIAN Family Medicine | DX: I25.5 Ischemic cardiomyopathy (principal) | CPT/HCPCS: 93306 ==

== ENCOUNTER 2024-08-26 09:37 | Outpatient (RCR) | payer MEDICARE, OTHER, SELFPAY | END 2024-08-26 23:59 | disposition home or self-care (01) | LOC: CRHB 09:37 | PROVIDERS: ATTENDING PHYSICIAN Internal Medicine | DX: I25.10 Atherosclerotic heart disease of native coronary artery without angina pectoris (principal); Z95.5 Presence of coronary angioplasty implant and graft; I25.2 Old myocardial infarction | CPT/HCPCS: G0422; G0423 ==

== ENCOUNTER 2024-09-28 10:44 | Outpatient (RCR) | payer MEDICARE, OTHER, SELFPAY | END 2024-09-28 23:59 | disposition home or self-care (01) | LOC: CRHB 10:44 | PROVIDERS: ATTENDING PHYSICIAN Internal Medicine | DX: I25.2 Old myocardial infarction (principal); Z95.5 Presence of coronary angioplasty implant and graft (principal); I25.10 Atherosclerotic heart disease of native coronary artery without angina pectoris | CPT/HCPCS: G0422; G0423 ==

== ENCOUNTER 2024-10-14 09:30 | Outpatient (RCR) | payer MEDICARE, OTHER, SELFPAY | END 2024-10-14 23:59 | disposition home or self-care (01) | LOC: CRHB 09:30 | PROVIDERS: ATTENDING PHYSICIAN Internal Medicine; FAMILY PHYSICIAN Pediatrics Adolescent Medicine | DX: I25.10 Atherosclerotic heart disease of native coronary artery without angina pectoris (principal); Z95.5 Presence of coronary angioplasty implant and graft; I25.2 Old myocardial infarction | CPT/HCPCS: G0422; G0423 ==